=== PATIENT | male | born 1955 | race Caucasian/White ===

== ENCOUNTER 2016-11-14 18:37 | Inpatient (IN) ==
[2016-11-14] MEDS ORDERED: MetroNIDAZOLE 500 MG/100 ML 500 MG/100 ML BAG IVPB ONE (19:19)
--- NOTE | 2016-11-14 19:27 | Emergency Department Note ---
Disposition Clinical Impression: Sigmoid diverticulitis Disposition: Admitted As Inpatient Condition: Good Abdominal Pain HPI - General Chief Complaint: ED Abdominal Pain Stated Complaint: Abd Pain Time Seen by Provider: 11/14/16 18:58 Source: patient, EMS Nursing Notes Reviewed: Yes Vital Signs Reviewed: Yes - History of Present Illness HPI Narrative: 61-year-old male, otherwise healthy presents to the emergency department with the chief complaint of abdominal pain and confirmed diverticulitis. He has been having 1 week of intermittent diarrhea and some lower abdominal pain. A CT scan was performed at the NH which showed sigmoid diverticulitis with surrounding stranding and some free fluid in the abdomen. He denies any nausea or vomiting. He complains of some mild lower abdominal pain described as crampy. Denies any blood in his stool. No fevers or chills. No upper abdominal pain. No history of diverticulitis in the past. He takes no anticoagulants. Pain Scale: 7 - Related Data Allergies Allergy/AdvReac Type Severity Reaction Status Date / Time Bee Pollen AdvReac See Verified 11/14/16 20:02 Comments All systems ED: reviewed and negative except as stated. Constitutional: Denies: fever Cardiovascular: Denies: chest pain Respiratory: Denies: dyspnea Gastrointestinal: Reports: abdominal pain, diarrhea. Denies: nausea, vomiting Neurological: Denies: headache Abdominal Pain PMH - Past Medical History Medical history: Reports: hyperlipidemia Male Surgical History: Reports: non-contributory Psychiatric history: Reports: no psych history - Social History Smoking status: Former smoker Alcohol use: Reports: rarely Drug use: Reports: none Physical Exam General: Appears well, alert and oriented x 3 Cardiovascular: Regular rate and rhythm. S1, S2. No murmurs, rubs or gallops. Respiratory: Breath sounds clear bilaterally. No wheezing, rales or rhonchi. No resp distress Abdomen: Abdomen is soft without any rebound or rigidity. He does have some guarding in the lower abdomen. Normal bowel sounds throughout. No palpable organomegaly. No hernias palpated. Eyes: conjunctiva clear HENT: Normocephalic, no signs of head injury. No oral mucosal lesions. Moist mucous membranes Neuro: Alert and oriented 3 Musculoskeletal: No joint tenderness or swelling Skin: No lesions. No diaphoresis. Normal turgor. Normal color Psych: Appropriate - General Limitations: no limitations General appearance: alert Course Course Narrative: Sent from the NH with CT scan showing sigmoid diverticulitis with surrounding straining. He has a leukocytosis with a white count of 16,000. His hemoglobin is 16. Normal renal function. No history of this in the past. No surgical history in the abdomen. On exam he has some guarding but no rebound or rigidity. They did note some free fluid in the abdomen but no pneumoperitoneum. I spoke with the on-call surgeon, Dr. Moreland who states he has available for surgical consultation if necessary. I started the patient on IV ciprofloxacin and Flagyl. Patient will be admitted to the hospital service for further management. Vital Signs Temperature 99.1 F 11/14/16 18:40 Pulse Rate 97 11/14/16 18:40 Respiratory Rate 14 11/14/16 18:40 Blood Pressure 156/101 11/14/16 18:40 O2 Sat by Pulse Oximetry 96 11/14/16 18:40 Temperature 99.1 F 11/14/16 18:40 Pulse Rate 97 11/14/16 18:40 Respiratory Rate 14 11/14/16 18:40 Blood Pressure 156/101 11/14/16 18:40 O2 Sat by Pulse Oximetry 96 11/14/16 18:40 Oxygen Delivery Oxygen Delivery Room Air Attestation Statement - Attestation Attestation: I examined this patient and my medical decision-making was reviewed with the TROLLEY COLLECTOR/PA/Advanced Practice Nurse/Resident Physician. I agree with the documented findings, disposition and treatment plan as described except to the extent set forth below. Patient would need to be admitted for IV antibiotics and surgery consultation.
[2016-11-14] MEDS ORDERED: Acetaminophen 325 MG TABLET PO PRN (21:06)
[2016-11-14] MEDS ORDERED: *HR* HYDROcodone/Acet 5/325 mg TABLET PO PRN (21:06)
[2016-11-14] MEDS ORDERED: Ondansetron 4 MG/2 ML VIAL IVP PRN (21:06)
[2016-11-14] MEDS ORDERED: Naloxone 0.4 MG/ML INJ IVP PRN (21:06)
[2016-11-14] MEDS ORDERED: *HR* Morphine 2 MG/ML SYRINGE IVP PRN (21:06)
--- NOTE | 2016-11-14 21:14 | Internal Med History&Physical ---
Date of Encounter: 11/14/16 Time of Encounter: 20:45 Internal Medicine - H&P: HPI Chief complaint: Lower abdominal pain and fullness x 1 week Admitted From: Emergency Dept Plans for Post Hospital Care: Home History of present illness: Mr. Brewer is a 61 year old male, VET, with medical history significant for diverticulosis without previous diverticulitis, or personal or family history of gastrointestinal malignancy was sent from the [facility] for evaluation of abdominal pain with CT evidence of focal sigmoid diverticulitis. He reports 1 weeks of lower abdominal pain, with intermittent diarrhea and feeling of fullness. Abdominal pain is in the lower abdomen, most in the suprapubis and LLQ. He rates his pain as 7-8/10 at its peak and 2/10 at it's trough. thinks the patient may have had a low grade fever, an account which the patient disagrees with. No chills or rigors. No nausea, vomiting, hematemesis, hematochezia, tenesmus. No weight changes. hE UNDERWENT COLONOSCOPY IN AT [facility] and was informed he had diverticulosis. No r ecent antiboitic use, no recent hospitalization. He is FULL CODE as per discussion and nominates his spouse, Berto Brewer ([phone]) as his NOK/POA. ROS: positive: abdominal pain, intermittent loose stool alternating with soft stools, negative; nausea, vomiting, diarrhea, hematemesis, hematochezia, tenesmus, fever, chills or rigors, urinary or neurological symptoms. A 10-point ROS was performed, positives and relevant negatives are detailed, system- symptom not mentioned assumed negative unless otherwise stated. Vital Signs Temperature 99.1 F 11/14/16 18:40 Pulse Rate 97 11/14/16 18:40 Respiratory Rate 14 11/14/16 18:40 Blood Pressure 156/101 11/14/16 18:40 O2 Sat by Pulse Oximetry 96 11/14/16 18:40 Temperature 99.1 F 11/14/16 18:40 Pulse Rate 97 11/14/16 18:40 Respiratory Rate 14 11/14/16 18:40 Blood Pressure 156/101 11/14/16 18:40 O2 Sat by Pulse Oximetry 96 11/14/16 18:40 Not in distress, he is not ill but or toxic looking. Not pale, anicteric, afebrile, acyanotic. Moist mucosa, EOMI, PERRL. HEENT: No JVD. No cervical lymphadenopathy, Chest : CTAB Heart: RRR, HS1/2, no m/r/g. Abdomen: soft, in the suprapubis and LLQ, no guarding, no masses, BS (somewhat hyperactive) : No flank tenderness, no CVA tenderness, no suprapubic tenderness. 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 Extremities: Trace pedal edema, normal pedal pulses, no calf tenderness, bilaterally Labs and imaging done at the [facility] HH=16.2/49, WBC=16,000, N=78%, normal platelet Urinalysis: normal CT abdomen: focal sigmoid wall thickening with fat standing. small pelvic fluid , likely inflammatory, no pneumoperitoneum. IMP Acute sigmoid diverticulitis Chronic morbidities Diverticulosis Psoriasiform dermatitis GERD Chronic otitis media, currently on Neospoon ear drops. PLAN Admit IVF RL @ 125 Optimal pain relief He wants to eat, approved for clear liquid diet, with the goal to advance to low residue diet when he improves. Continue medications of chronic morbidities No indication for surgical consult for now. Low risk for DVT, no indication for DVT prophylaxis. Low risk for stress ulceration, no indication for GI prophylaxis. I discussed my assessment with the patient, at bedside, they verbalize understanding and are agreeable to admission. He will benefit from interval colonoscopy in 3-6 weeks since his last study was >5 years ago. Past Med Surg Social Fam HX - Past Medical History Medical history: hyperlipidemia Psychiatric history: no psych history - Social History Smoking Status: Former smoker Smokeless Tobacco Status: No Alcohol use: rarely Drug use: none - Family History Father Hx Family GI Disorders: Yes (kidney failure) Mother History Unknown: Yes Hx Family Cancer: Yes (Lung CA) Internal Medicine - H&P: Meds Ascorbate Calcium [Vitamin C] 1,000 mg PO DAILY 11/14/16 [History] Atorvastatin [Lipitor] 10 mg PO HS 11/14/16 [History] [place] Tar [Dhs Tar] 1 appl TP DAILY 11/14/16 [History] FluocinoNIDE 0.05% CRM [Lidex] 1 appl TP BID 11/14/16 [History] Fluticasone Propionate Nasal [Flonase] 50 mcg NS BID 11/14/16 [History] Yoel/Poly/HC *EAR* SUSP [Cortisporin *EAR* SUSP] 4 drop BOTH EARS TID 11/14/16 [ History] Pseudoephedrine [Sudafed] 30 mg PO Q4HR PRN 11/14/16 [History] Allergies Bee Pollen Adverse Reaction (Verified 11/14/16 20:02) See Comments [facility]. All Systems PM: A 10-system review of systems was performed and is negative for pertinent findings except as documented above in the HPI. - Constitutional Vitals: Temp Pulse Resp BP Pulse Ox 98.8 F 91 18 147/76 95 11/14/16 21:04 11/14/16 21:04 11/14/16 21:04 11/14/16 21:04 11/14/16 21:04 - VTE Reasons for not Prescribing Prophylaxis: Treatment not Indicated - Low risk for VTE
[2016-11-15] MEDS: MetroNIDAZOLE 500 MG/100 ML 500 MG/100 ML BAG IVPB SCH ×3 (00:34→16:23)
[2016-11-15 07:26] LABS: Basophils # 0.1 K/mcL (0.0-0.2); Basophils % 0.4 %; Eosinophils # 0.1 K/mcL (0.0-0.6); Eosinophils % 0.4 %; Hematocrit 45.6 % (37.5-50.1); Hemoglobin 14.7 g/dL (12.9-16.9); Immature Granulocytes % 0.6 % (0-4); Lymphocytes # 1.1 K/mcL (0.6-4.6); Mean Corpuscular HGB Conc 32.2 g/dL (31.6-35.5); Mean Corpuscular Hemoglobin 30.5 pg (28.0-33.3); Mean Corpuscular Volume 94.6 fL (83.0-100.0); Monocytes # 1.3 K/mcL (0.0-1.3); Monocytes % 9.7 %; Neutrophils # 11.1 K/mcL (1.6-8.9); Platelet Count 259 K/mcL (140-400); Red Blood Count 4.82 M/mcL (4.19-5.50); Red Cell Distribution Width 12.6 % (11.5-14.5); Segmented Neutrophils % 80.9 %
[2016-11-15 07:36] LABS: BUN/Creatinine Ratio 9 (6-26); Blood Urea Nitrogen 11 mg/dL (8-26); Calcium 8.7 mg/dL (8.6-10.8); Carbon Dioxide 24 mEq/L (19-29); Chloride 104 mEq/L (98-109); Glucose 136 mg/dL (70-99); Osmolality,Calculated 287 (280-300); Potassium 4.3 mEq/L (3.5-4.5); Sodium 138 mEq/L (136-145); eGFR For African Americans > 60 (> 60); eGFR For Non-African Americans > 60 (> 60)
--- NOTE | 2016-11-15 08:46 | Internal Med Progress Note ---
<SusieusVenitajuan - Last Filed: 11/15/16 15:21> Date of Encounter: 11/15/16 Time of Encounter: 08:39 - Assessment and plan (1) Sigmoid diverticulitis Current Visit: Yes Status: Acute Assessment and plan: Patient with h/o of diverticulosis presenting to ED with 1 week of abdominal pain, non-bloody diarrhea, and bloating. CT abdomen/pelvis at [place] showing focal segmental wall thickening, fat stranding, and small amount of pelvic fluid. No pneumoperitoneum. CT report stated that presence of abscess could not be assessed due to lack of IV contrast. WBC at outside facility 16,000. Upon arrival patient with T99.1, WBC 13.8, HR 97. On initial exam patient with suprapubic/LLQ pain to palpation, +guarding, no rigidity, rebound tenderness, or signs of acute abdomen. Patient was started on IV cipro/flagyl and started on clear liquid diet. Today patient reports abdominal pain has improved. He had one loose stool and one episode of N /V after his abx this am. He is afebrile. Mild suprapubic tenderness to palpation. WBC trending down - 13.8. Plan: -Continue Cipro/Flagyl -Continue Zofran as needed for nausea -Serial abdominal exams. -Ambulate TID. -Morphine and percocet PRN for severe pain -Will advance diet as tolerated. -Patient will need outpatient follow up/colonoscopy due to this being initial attack and having a colonoscopy >1 year ago. -full liquid diet for lunch, regular diet for dinner. -will transition to oral antibiotics tomorrow. If patient stable, may be discharged home tomorrow. (2) Acid reflux Current Visit: No Status: Chronic Assessment and plan: Patient with history of acid reflux/heart burn. Reports no symptoms at this time. Does not take scheduled medication for this. Uses PRN tums at home. Will continue to monitor. Qualifiers: Esophagitis presence: without esophagitis Qualified Code(s): K21.9 - Gastro -esophageal reflux disease without esophagitis (3) Psoriasiform dermatitis Current Visit: No Status: Chronic Assessment and plan: Patient with history of psoriasiform dermatitis. Reports no symptoms at this time. (4) Chronic otitis media Current Visit: Yes Status: Chronic Assessment and plan: Patient with h/o of chronic otitis media. Have continued home cortisporin drops. Will continue to monitor. Qualifiers: Otitis media type: other nonsuppurative Laterality: bilateral Qualified Code(s): H65.493 - Other chronic nonsuppurative otitis media, bilateral (5) Hyperlipidemia Current Visit: Yes Status: Acute Assessment and plan: Continue home med Atorvastatin. Qualifiers: Hyperlipidemia type: unspecified Qualified Code(s): E78.5 - Hyperlipidemia , unspecified (6) DVT prophylaxis Current Visit: Yes Status: Acute Assessment and plan: Ambulate TID. Patient states he has been getting up and walking around. He is low risk for DVT/PE - Subjective Interval history: 61 year old male evaluated at bedside. Patient's was in the room with him. No overnight events. Patient reports he is feeling better this morning. His abdominal pain is very minimal at this time and he did not require any pain medication overnight. He reports he is feeling a little bloated. He is doing well with clear liquids. He had an episode of nausea/vomiting x1 this morning after receiving his abx. Reports one loose non-bloody stool this morning. Denies chills, cp, palpitations, sob, dysuria, or any other pain at this time. - Constitutional Vitals: Temp Pulse Resp BP Pulse Ox 98.7 F 77 16 121/80 95 11/15/16 07:13 11/15/16 07:13 11/15/16 07:13 11/15/16 07:13 11/15/16 07:13 General appearance: Present: cooperative, A&O X 3, pleasant, no acute distress, answers questions appropriately - Head Head exam: Present: atraumatic, normocephalic - Eye Eye exam: Present: PERRL, conjuntiva pink, sclera anicteric - ENT ENT exam: Present: mucous membranes moist - Neck Neck exam general surgery: Present: supple, trachea midline. Absent: lymphadenopathy - Respiratory Respiratory exam: Present: CTAB. Absent: accessory muscle use, rales, rhonchi, wheezes - Cardiovascular Cardiovascular exam: Present: RRR, +S1, +S2. Absent: diastolic murmur, gallop, rubs, systolic murmur - GI/Abdominal GI/Abdominal exam: Present: hyperactive bowel sounds, soft, tenderness (mild tenderness to palpation suprapubic region), no peritoneal signs. Absent: distended, firm, guarding, rebound - Extremities Exam Extremities exam: Present: warm, radial pulses palpable and symetrical. Absent : calf tenderness, cyanotic, mottling, pedal edema - Back Exam Back exam: Present: normal inspection - Neurological Exam Neurological exam: Present: alert, oriented X3, no focal deficits - Psychiatric Psychiatric exam: Present: anxious, normal affect, normal mood - Skin Skin exam: Present: dry, intact Internal Medicine: Result - Labs CBC & Chem 7: 11/15/16 06:47 11/15/16 06:47 - VTE Reasons for not Prescribing Prophylaxis: Treatment not Indicated - Low risk for VTE Consult Discharge Plan - Plan Referrals: [facility] [Outside] - 11/24/16 3:30 pm <Dwight Espinoza - Last Filed: 11/15/16 15:41> Date of Encounter: 11/15/16 - Constitutional Vitals: Temp Pulse Resp BP Pulse Ox 98.4 F 76 16 132/82 95 11/15/16 15:22 11/15/16 15:22 11/15/16 15:22 11/15/16 15:22 11/15/16 15:22 Internal Medicine: Result - Labs CBC & Chem 7: 11/15/16 06:47 11/15/16 06:47 - Attending Attestation I examined this patient and my medical decision-making was reviewed with the TAWER/PA/Advanced Practice Nurse/Resident Physician. I agree with the documented findings, disposition and treatment plan as described except to the extent set forth below. 61-year-old male with past medical history of hyperlipidemia and diverticulosis being managed for diverticulitis. Patient is seen at bedside. Denies new complaints. Had one Bowel movement today , loose and non-bloody. Physical exam vital signs are stable , right lower quadrant tenderness and suprapubic tenderness, no rebound. Back sacral sounds. Labs and Imaging Reviewed-leukocytosis shift, normal chemistry.CT abdomen: focal sigmoid wall thickening with fat standing. small pelvic fluid, likely inflammatory, no pneumoperitoneum. Continue antibiotics, advance diet, monitor closely, Anticipate to discharge in the morning if tolerated regular diet. Ambulate Other chronic conditions stable, continue home meds
[2016-11-15] MEDS: Ascorbic Acid 500 MG TABLET PO SCH (08:50)
[2016-11-15] MEDS: Cortisporin *EAR*Susp 10 ML BOTTLE BOTH EARS SCH ×3 (08:51→20:44)
[2016-11-16] MEDS: MetroNIDAZOLE 500 MG/100 ML 500 MG/100 ML BAG IVPB SCH (00:17)
[2016-11-16 05:31] LABS: Basophils # 0.1 K/mcL (0.0-0.2); Basophils % 0.5 %; Eosinophils # 0.2 K/mcL (0.0-0.6); Eosinophils % 2.5 %; Hematocrit 43.5 % (37.5-50.1); Hemoglobin 14.7 g/dL (12.9-16.9); Immature Granulocytes % 0.4 % (0-4); Lymphocytes # 2.5 K/mcL (0.6-4.6); Lymphocytes % 25.9 %; Mean Corpuscular HGB Conc 33.8 g/dL (31.6-35.5); Mean Corpuscular Hemoglobin 31.6 pg (28.0-33.3); Mean Corpuscular Volume 93.5 fL (83.0-100.0); Mean Platelet Volume 10.3 fL (9.4-12.4); Monocytes # 0.9 K/mcL (0.0-1.3); Monocytes % 9.5 %; Neutrophils # 5.8 K/mcL (1.6-8.9); Platelet Count 251 K/mcL (140-400); Red Blood Count 4.65 M/mcL (4.19-5.50); Red Cell Distribution Width 12.6 % (11.5-14.5); Segmented Neutrophils % 61.2 %
[2016-11-16 05:56] LABS: BUN/Creatinine Ratio 13 (6-26); Blood Urea Nitrogen 14 mg/dL (8-26); Calcium 8.5 mg/dL (8.6-10.8); Carbon Dioxide 24 mEq/L (19-29); Chloride 108 mEq/L (98-109); Glucose 110 mg/dL (70-99); Osmolality,Calculated 293 (280-300); Sodium 141 mEq/L (136-145); eGFR For African Americans > 60 (> 60); eGFR For Non-African Americans > 60 (> 60)
[2016-11-16 07:01] VITALS: BP 123/79
--- NOTE | 2016-11-16 08:11 | Discharge Summary ---
<Ramirez Winkler - Last Filed: 11/16/16 08:03> Date of Encounter: 11/16/16 Time of Encounter: 08:03 - Discharge Diagnosis (1) Sigmoid diverticulitis Priority: Primary Status: Acute (2) Acid reflux Priority: Secondary Status: Chronic Qualifiers: Esophagitis presence: without esophagitis Qualified Code(s): K21.9 - Gastro -esophageal reflux disease without esophagitis (3) Psoriasiform dermatitis Priority: Secondary Status: Chronic (4) Chronic otitis media Priority: Secondary Status: Chronic Qualifiers: Otitis media type: other nonsuppurative Laterality: bilateral Qualified Code(s): H65.493 - Other chronic nonsuppurative otitis media, bilateral (5) Hyperlipidemia Priority: Secondary Status: Acute Qualifiers: Hyperlipidemia type: unspecified Qualified Code(s): E78.5 - Hyperlipidemia , unspecified (6) DVT prophylaxis Priority: Secondary Status: Acute - Discharge Medications Prescriptions: HYDROcodone/Acet 5/325 mg [Thayer 5-325 mg] 1 tab PO Q4HR PRN #12 tablet PRN Reason: Moderate to severe pain Ciprofloxacin [Cipro] 500 mg PO BID #16 tablet MetroNIDAZOLE [Flagyl] 500 mg PO TID #24 tablet Home Medications: Ascorbate Calcium [Vitamin C] 1,000 mg PO DAILY 11/14/16 [History] Atorvastatin [Lipitor] 10 mg PO HS 11/14/16 [History] [place] Tar [Dhs Tar] 1 appl TP DAILY 11/14/16 [History] FluocinoNIDE 0.05% CRM [Lidex] 1 appl TP BID 11/14/16 [History] Fluticasone Propionate Nasal [Flonase] 50 mcg NS BID 11/14/16 [History] Yoel/Poly/HC *EAR* SUSP [Cortisporin *EAR* Susp] 4 drop BOTH EARS TID 11/14/16 [ History] Pseudoephedrine [Sudafed] 30 mg PO Q4HR PRN 11/14/16 [History] Ciprofloxacin [Cipro] 500 mg PO BID #16 tablet 11/16/16 [Rx] HYDROcodone/Acet 5/325 mg [Thayer 5-325 mg] 1 tab PO Q4HR PRN #12 tablet [Rx] MetroNIDAZOLE [Flagyl] 500 mg PO TID #24 tablet 11/16/16 [Rx] Allergies/Adverse Reactions: Allergies Bee Pollen Adverse Reaction (Verified 11/14/16 20:02) See Comments per CT lsit. Date of admission: 11/15/16 07:56 Primary care physician: PCP CT - Patient Status Disposition: Home, Self-Care Condition: Good Functional capacity at discharge: independent ambulation Overall status at discharge: patient is progressing back to baseline - Discharge Instructions Follow Up With: [facility] [Outside] - 11/24/16 3:30 pm Additional Instructions: Follow up with your PCP within one week of discharge. May return to work on Monday with light duty Take Flagyl three times a day until antibiotics are finished. Take Cipro three times a day until finished. Please return to emergency department if symptoms return. - Diet and Activity Activity: increase activity as tolerated Diet: advance to your usual diet Hospital course: Mr. Brewer is a 61 year old male Vet with pMhx of diverticulosis Hyperlipidemia, chronic otitis media. He has no previous episodes of diverticulitis. He came to the hospital on 11/14/16 with CC of lower abdominal pain that lasted for about a week with intermittent diarrhea. CT of abdomen/ pelvis at CT showed focal segmental wall thickening, fat stranding, and a small amount of pelvic fluid, no pneumoperitoneum. Patient had a mildly elevated white count upon arrival, which quickly resolved. He was placed on IV antibiotics for one day, then switched to oral antibiotics. His diet was slowly advanced and he tolerated it well. Patient was educated on importance of high fiber diet after his diverticulitis resolves in order to prevent future episodes. Patient was stable throughout his hospital course and had no acute events. Patient had bowel sounds present with bowel movements, and had no signs of an acute abdomen. He remained stable until he was discharged from the hospital. Plan: Follow up with PCP in one week. Take Flagyl and ciprofloxacin as directed. Return to emergency department if symptoms return. - Time Spent with Patient Total time spent providing and/or coordinating discharge services: - Constitutional Vitals: Temp Pulse Resp BP Pulse Ox 97.7 F 56 16 123/79 97 11/16/16 07:00 11/16/16 07:00 11/16/16 07:00 11/16/16 07:00 11/16/16 07:00 General appearance: Present: cooperative, A&O X 3, pleasant, no acute distress, answers questions appropriately - Head Head exam: Present: atraumatic, normocephalic - Neck Neck exam general surgery: Present: supple, trachea midline - Respiratory Respiratory exam: Present: CTAB - Cardiovascular Cardiovascular exam: Present: RRR, +S1, +S2 - GI/Abdominal GI/Abdominal exam: Present: normal bowel sounds, soft, tenderness (low suprapubic tenderness. ). Absent: distended - Extremities Exam Extremities exam: Present: warm. Absent: cyanotic, pedal edema - Neurological Exam Neurological exam: Present: alert, oriented X3, no focal deficits - Psychiatric Psychiatric exam: Present: normal affect, normal mood - VTE Reasons for not Prescribing Prophylaxis: Treatment not Indicated - Low risk for VTE <Dwight Espinoza - Last Filed: 11/16/16 14:25> Date of admission: 11/15/16 07:56 Primary care physician: PCP CT Hospital course: Mr. Brewer is a 61 year old male - Time Spent with Patient Total time spent providing and/or coordinating discharge services: - Constitutional Vitals: Temp Pulse Resp BP Pulse Ox 97.7 F 56 16 123/79 97 11/16/16 07:00 11/16/16 07:00 11/16/16 07:00 11/16/16 07:00 11/16/16 07:00 - Attending Attestation I examined this patient and my medical decision-making was reviewed with the LIE DETECTOR OPERATOR/PA/Advanced Practice Nurse/Resident Physician. I agree with the documented findings, disposition and treatment plan as described except to the extent set forth below. 61-year-old male with past medical history of hyperlipidemia and diverticulosis admitted for management of diverticulitis. Patient is seen at bedside. Denies new complaints. Had one Bowel movement today , loose and non-bloody. Physical exam vital signs are stable , no abdominal tenderness. Labs and Imaging Reviewed-leukocytosis resolved. normal chemistry. Patient is stable to discharge home on oral antibiotics Educated to follow up with PCP in one week Will need colonoscopy as out-patient Refused Flu shot Plan of care discussed, verbalized understanding.
[2016-11-16] MEDS: Ascorbic Acid 500 MG TABLET PO SCH (08:40)
[2016-11-16] MEDS: Cortisporin *EAR*Susp 10 ML BOTTLE BOTH EARS SCH (08:41)
[2016-11-16] MEDS ORDERED: metroNIDAZOLE 500 MG TABLET PO SCH (15:00)
== END 2016-11-16 10:54 | disposition home or self-care (01) | DRG 392 ==
LOC: 3ANU 18:37 → EMEROO 18:37 → SUATTDRO 19:50 → 3ANU 20:31
PROVIDERS: ADMIT Family Medicine; ATTEND Internal Medicine